=== PATIENT | male | born 1980 | race Caucasian/White ===

== ENCOUNTER 2018-10-07 13:58 | Inpatient (IN) | payer OTHER ==
[2018-10-07 16:58] LABS: ADD MAN DIFF? NO; BASOPHILS % 0.4 % (0.0-2.0); EOSINOPHILS # 0.3 10^3/ul (0.0-0.5); EOSINOPHILS % 3.6 % (0.0-7.0); HEMATOCRIT 34.4 % (42.0-52.0); HEMOGLOBIN 10.7 g/dl (14.0-18.0); LYMPHOCYTES # 1.6 10^3/ul (0.8-2.9); LYMPHOCYTES % 23.3 % (15.0-51.0); MEAN CORPUSCULAR HGB CONC 31.1 g/dl (32.0-37.0); MEAN CORPUSCULAR VOLUME 77.1 fl (82.0-101.0); MEAN PLATELET VOLUME 9.6 fl (7.4-10.4); MONOCYTE # 0.7 10^3/ul (0.3-0.9); MONOCYTES % 9.8 % (0.0-11.0); NEUTROPHIL # 4.3 10^3/ul (1.6-7.5); NEUTROPHILS % 62.2 % (39.0-77.0); PLATELET COUNT 343 10^3/UL (140-415); RED BLOOD COUNT 4.46 10^6/ul (4.70-6.10); RED CELL DISTRIBUTION WIDTH 15.7 % (11.5-14.5)
[2018-10-07 17:10] LABS: ALANINE AMINOTRANSFERASE 17 IU/L (13-69); ALBUMIN 2.7 g/dl (3.3-4.9); ALBUMIN/GLOBULIN RATIO 0.75; ALKALINE PHOSPHATASE 60 IU/L (42-121); ANION GAP 9 (5-13); ASPARTATE AMINO TRANSFERASE 22 IU/L (15-46); BLOOD UREA NITROGEN 17 mg/dl (7-20); CALCIUM 8.5 mg/dl (8.4-10.2); CARBON DIOXIDE 25 mmol/L (21-31); CHLORIDE 106 mmol/L (97-110); CREATININE 1.53 mg/dl (0.61-1.24); Estimated GFR 52 mL/min (>60); GLUCOSE 198 mg/dl (70-220); POTASSIUM 4.6 mmol/L (3.5-5.1); SODIUM 140 mmol/L (135-144); TOTAL PROTEIN 6.3 g/dl (6.1-8.1)
[2018-10-07 17:21] LABS: TROPONIN-I 0.025 ng/ml (0.000-0.120)
[2018-10-07 17:40] LABS: B-TYPE NATRIURETIC PEPTIDE 4510 PG/ML (0-125)
[2018-10-07] MEDS ORDERED: ONDANSETRON 4 MG INJ IV (18:30)
[2018-10-07] MEDS: ONDANSETRON 4 MG INJ IV (18:45)
[2018-10-07] MEDS: HYDROmorphONE 1 MG/ML SYG IV (18:45)
[2018-10-07] MEDS ORDERED: GLUCAGON 1 MG INJ IM (21:00)
[2018-10-07] MEDS ORDERED: GLUCOSE GEL 15 GRAM TUBE PO ×2 (21:00)
[2018-10-07] MEDS ORDERED: DEXTROSE 50% 50 ML SYRINGE IV ×2 (21:00)
[2018-10-07] MEDS ORDERED: NACL 0.9% 3 ML SYG IV (21:00)
[2018-10-07] MEDS ORDERED: HYDROCODONE/APAP (5/325) TAB PO (21:00)
[2018-10-07] MEDS ORDERED: GLUCOSE GEL 15 GRAM TUBE BUCCAL (21:00)
[2018-10-07] MEDS: FUROSEMIDE 40 MG INJ IV (21:37)
[2018-10-07] MEDS: hydrALAzine 20 MG INJ IV (22:30)
[2018-10-07] MEDS: INSULIN ASPART [NOVOLOG] 3 ML PEN SC (23:43)
[2018-10-08] MEDS: ACETAMINOPHEN 500 MG TAB PO ×2 (00:16→01:49)
[2018-10-08] MEDS: INSULIN GLARGINE [LANTus] (100 UNITS/ML) SYG SC ×2 (01:48→20:27)
[2018-10-08] MEDS: HYDROmorphONE 0.5 MG/0.5 ML SYG IV ×2 (04:45→22:19)
[2018-10-08] MEDS: FUROSEMIDE 40 MG INJ IV ×2 (06:31→17:57)
[2018-10-08 06:46] LABS: ADD MAN DIFF? NO
[2018-10-08 06:50] LABS: BASOPHILS % 0.5 % (0.0-2.0); EOSINOPHILS # 0.3 10^3/ul (0.0-0.5); EOSINOPHILS % 4.6 % (0.0-7.0); LYMPHOCYTES # 1.5 10^3/ul (0.8-2.9); LYMPHOCYTES % 22.8 % (15.0-51.0); MEAN CORPUSCULAR HEMOGLOBIN 24.1 pg (29.0-33.0); MEAN CORPUSCULAR HGB CONC 31.3 g/dl (32.0-37.0); MEAN CORPUSCULAR VOLUME 77.1 fl (82.0-101.0); MEAN PLATELET VOLUME 9.4 fl (7.4-10.4); MONOCYTE # 0.6 10^3/ul (0.3-0.9); MONOCYTES % 8.6 % (0.0-11.0); NEUTROPHIL # 4.1 10^3/ul (1.6-7.5); NEUTROPHILS % 62.9 % (39.0-77.0); PLATELET COUNT 302 10^3/UL (140-415); RED BLOOD COUNT 4.15 10^6/ul (4.70-6.10); RED CELL DISTRIBUTION WIDTH 15.9 % (11.5-14.5)
[2018-10-08 06:50] LABS: WHITE BLOOD COUNT 6.5 10^3/ul (4.8-10.8)
[2018-10-08 07:10] LABS: HEMOGLOBIN A1C 10.7 % (0-5.9)
[2018-10-08 07:14] LABS: ALANINE AMINOTRANSFERASE 12 IU/L (13-69); ALBUMIN 2.4 g/dl (3.3-4.9); ALBUMIN/GLOBULIN RATIO 0.77; ALKALINE PHOSPHATASE 62 IU/L (42-121); ANION GAP 5 (5-13); ASPARTATE AMINO TRANSFERASE 15 IU/L (15-46); BLOOD UREA NITROGEN 17 mg/dl (7-20); CALCIUM 8.2 mg/dl (8.4-10.2); CARBON DIOXIDE 26 mmol/L (21-31); CHLORIDE 111 mmol/L (97-110); CREATININE 1.59 mg/dl (0.61-1.24); Estimated GFR 50 mL/min (>60); GLUCOSE 178 mg/dl (70-220); POTASSIUM 4.4 mmol/L (3.5-5.1); SODIUM 142 mmol/L (135-144); TOTAL PROTEIN 5.5 g/dl (6.1-8.1)
[2018-10-08 07:23] LABS: IRON 27 ug/dl (35-150)
[2018-10-08 07:33] LABS: % IRON SATURATION 12 % SAT (22-52); TOTAL IRON BINDING CAPACITY 229 ug/dl (241-421)
[2018-10-08] MEDS: INSULIN ASPART [NOVOLOG] 3 ML PEN SC ×7 (07:55→20:27)
[2018-10-08] MEDS: AMLODIPINE 5 MG TAB PO (08:34)
[2018-10-08] MEDS: ENOXAPARIN 30 MG/0.3 ML SYG SC (08:56)
[2018-10-08 09:18] LABS: HAAIG REFLEX REFLEX FILED
[2018-10-08] MEDS: morphine 2 MG INJ IV (11:29)
[2018-10-08 13:39] LABS: COMPLEMENT C3 123 mg/dl (88-165)
[2018-10-08 14:03] LABS: HEPATITIS B SURFACE ANTIGEN NEGATIVE (NEGATIVE)
[2018-10-08 14:21] LABS: HEPATITIS B CORE ANTIBODY NEGATIVE (NEGATIVE); HEPATITIS C VIRAL ANTIBODY NEGATIVE (NEGATIVE)
[2018-10-08 14:36] LABS: COMPLEMENT C4 40 mg/dl (14-44)
[2018-10-08 18:15] LABS: RHEUMATOID FACTOR NEGATIVE (NEGATIVE)
[2018-10-09] MEDS: hydrALAzine 20 MG INJ IV ×3 (00:27→12:49)
[2018-10-09] MEDS: LABETALOL HCL 20MG INJ IV (02:43)
[2018-10-09] MEDS: HYDROmorphONE 0.5 MG/0.5 ML SYG IV ×3 (04:13→20:13)
[2018-10-09] MEDS: FUROSEMIDE 40 MG INJ IV ×2 (04:37→17:24)
[2018-10-09] MEDS: INSULIN ASPART [NOVOLOG] 3 ML PEN SC ×8 (07:55→21:00)
[2018-10-09] MEDS: LISINOPRIL 10 MG TAB PO (08:39)
[2018-10-09] MEDS: AMLODIPINE 5 MG TAB PO (08:39)
[2018-10-09] MEDS: ENOXAPARIN 30 MG/0.3 ML SYG SC (08:41)
[2018-10-09] MEDS: METOLAZONE 5 MG TAB PO ×2 (08:46→10:26)
[2018-10-09] MEDS ORDERED: LISINOPRIL 5 MG TAB PO (09:00)
[2018-10-09 09:57] LABS: ADD UMIC YES; UR ASCORBIC ACID NEGATIVE (NEGATIVE); UR BILIRUBIN (Dip) NEGATIVE (NEGATIVE); UR BLOOD (Dip) NEGATIVE (NEGATIVE); UR CLARITY CLEAR (CLEAR); UR COLOR COLORLESS (YELLOW); UR GLUCOSE (Dip) 1+ mg/dL (NEGATIVE); UR KETONES (Dip) NEGATIVE (NEGATIVE); UR LEUKOCYTE ESTERASE (Dip) NEGATIVE Leu/ul (NEGATIVE); UR NITRITE (Dip) NEGATIVE (NEGATIVE); UR RBC 1 /HPF (0-5); UR SPECIFIC GRAVITY (Dip) 1.006 (1.003-1.030); UR TOTAL PROTEIN (Dip) 2+ mg/dl (NEGATIVE); UR UROBILINOGEN (Dip) NEGATIVE (NEGATIVE); UR WBC 0 /HPF (0-5)
[2018-10-09 10:18] LABS: SODIUM,URINE RANDOM 142 mmol/L (30-90)
[2018-10-09 10:22] LABS: CREATININE,URINE RANDOM < 12.40 mg/dl (20-370)
[2018-10-09 10:25] LABS: ADD MAN DIFF? NO
[2018-10-09 10:26] LABS: BASOPHILS % 0.6 % (0.0-2.0); EOSINOPHILS # 0.3 10^3/ul (0.0-0.5); EOSINOPHILS % 4.5 % (0.0-7.0); HEMATOCRIT 32.9 % (42.0-52.0); HEMOGLOBIN 10.3 g/dl (14.0-18.0); LYMPHOCYTES # 1.6 10^3/ul (0.8-2.9); LYMPHOCYTES % 23.1 % (15.0-51.0); MEAN CORPUSCULAR HEMOGLOBIN 23.9 pg (29.0-33.0); MEAN CORPUSCULAR HGB CONC 31.3 g/dl (32.0-37.0); MEAN CORPUSCULAR VOLUME 76.3 fl (82.0-101.0); MEAN PLATELET VOLUME 9.5 fl (7.4-10.4); MONOCYTE # 0.6 10^3/ul (0.3-0.9); MONOCYTES % 8.3 % (0.0-11.0); NEUTROPHIL # 4.4 10^3/ul (1.6-7.5); NEUTROPHILS % 63.1 % (39.0-77.0); PLATELET COUNT 349 10^3/UL (140-415); RED BLOOD COUNT 4.31 10^6/ul (4.70-6.10); RED CELL DISTRIBUTION WIDTH 15.8 % (11.5-14.5)
[2018-10-09 10:56] LABS: ANION GAP 3 (5-13); BLOOD UREA NITROGEN 19 mg/dl (7-20); CALCIUM 8.5 mg/dl (8.4-10.2); CARBON DIOXIDE 27 mmol/L (21-31); CHLORIDE 108 mmol/L (97-110); Estimated GFR 53 mL/min (>60); GLUCOSE 186 mg/dl (70-220); MAGNESIUM 1.9 mg/dl (1.7-2.5); PHOSPHORUS 4.7 mg/dl (2.5-4.9); POTASSIUM 4.1 mmol/L (3.5-5.1); SODIUM 138 mmol/L (135-144)
[2018-10-09 11:47] LABS: MYELOPEROXIDASE ANTIBODY <1.0 AI; PROTEINASE-3 ANTIBODY <1.0 AI
[2018-10-09] MEDS ORDERED: traMADol 50 MG TAB PO (13:30)
[2018-10-09] MEDS ORDERED: ONDANSETRON 4 MG INJ IV (13:30)
[2018-10-09] MEDS: KETOROLAC 15 MG INJ IV (13:36)
[2018-10-09] MEDS: ONDANSETRON 4 MG INJ IV (13:36)
[2018-10-09 14:07] LABS: ANA SCREEN NEGATIVE (NEGATIVE)
[2018-10-09 16:26] LABS: ANTI-DNA (DOUBLE STRANDED) 121 U/mL (< 301)
[2018-10-09] MEDS: INSULIN GLARGINE [LANTus] (100 UNITS/ML) SYG SC (21:13)
[2018-10-10] MEDS: hydrALAzine 20 MG INJ IV (04:32)
[2018-10-10] MEDS: HYDROmorphONE 0.5 MG/0.5 ML SYG IV ×3 (04:38→20:32)
[2018-10-10 05:32] LABS: ANCA SCREEN NEGATIVE (NEGATIVE)
[2018-10-10 06:06] LABS: ADD MAN DIFF? NO
[2018-10-10 06:32] LABS: WHITE BLOOD COUNT 6.9 10^3/ul (4.8-10.8)
[2018-10-10 06:32] LABS: BASOPHILS % 0.4 % (0.0-2.0); EOSINOPHILS # 0.3 10^3/ul (0.0-0.5); EOSINOPHILS % 4.2 % (0.0-7.0); HEMATOCRIT 32.1 % (42.0-52.0); HEMOGLOBIN 10.1 g/dl (14.0-18.0); LYMPHOCYTES # 1.5 10^3/ul (0.8-2.9); LYMPHOCYTES % 21.7 % (15.0-51.0); MEAN CORPUSCULAR HGB CONC 31.5 g/dl (32.0-37.0); MEAN CORPUSCULAR VOLUME 76.4 fl (82.0-101.0); MEAN PLATELET VOLUME 9.3 fl (7.4-10.4); MONOCYTE # 0.6 10^3/ul (0.3-0.9); MONOCYTES % 8.4 % (0.0-11.0); NEUTROPHIL # 4.5 10^3/ul (1.6-7.5); NEUTROPHILS % 64.9 % (39.0-77.0); PLATELET COUNT 335 10^3/UL (140-415); RED CELL DISTRIBUTION WIDTH 15.6 % (11.5-14.5)
[2018-10-10] MEDS: FUROSEMIDE 40 MG INJ IV ×2 (06:37→17:39)
[2018-10-10 07:24] LABS: ANION GAP 3 (5-13); BLOOD UREA NITROGEN 18 mg/dl (7-20); CALCIUM 8.7 mg/dl (8.4-10.2); CARBON DIOXIDE 28 mmol/L (21-31); CHLORIDE 105 mmol/L (97-110); CREATININE 1.56 mg/dl (0.61-1.24); Estimated GFR 51 mL/min (>60); GLUCOSE 105 mg/dl (70-220); MAGNESIUM 1.9 mg/dl (1.7-2.5); POTASSIUM 3.9 mmol/L (3.5-5.1); SODIUM 136 mmol/L (135-144)
[2018-10-10] MEDS: INSULIN ASPART [NOVOLOG] 3 ML PEN SC ×7 (07:55→20:40)
[2018-10-10] MEDS: LISINOPRIL 10 MG TAB PO (08:26)
[2018-10-10] MEDS: AMLODIPINE 5 MG TAB PO (08:26)
[2018-10-10] MEDS: ENOXAPARIN 30 MG/0.3 ML SYG SC (08:30)
[2018-10-10] MEDS: INSULIN GLARGINE [LANTus] (100 UNITS/ML) SYG SC (20:39)
[2018-10-11] MEDS: hydrALAzine 20 MG INJ IV (04:27)
[2018-10-11] MEDS: FUROSEMIDE 40 MG INJ IV ×2 (05:28→17:25)
[2018-10-11] MEDS: HYDROmorphONE 0.5 MG/0.5 ML SYG IV ×3 (05:34→20:47)
[2018-10-11] MEDS: INSULIN ASPART [NOVOLOG] 3 ML PEN SC ×7 (07:55→20:50)
[2018-10-11] MEDS: AMLODIPINE 5 MG TAB PO (08:27)
[2018-10-11] MEDS: LISINOPRIL 10 MG TAB PO (08:27)
[2018-10-11] MEDS: ENOXAPARIN 30 MG/0.3 ML SYG SC (08:37)
[2018-10-11 10:49] LABS: ALBUMIN 2.6 g/dl (3.3-4.9); ANION GAP 3 (5-13); BLOOD UREA NITROGEN 24 mg/dl (7-20); CALCIUM 9.3 mg/dl (8.4-10.2); CARBON DIOXIDE 31 mmol/L (21-31); CHLORIDE 102 mmol/L (97-110); GLUCOSE 141 mg/dl (70-220); PHOSPHORUS 5.8 mg/dl (2.5-4.9); POTASSIUM 3.9 mmol/L (3.5-5.1); SODIUM 136 mmol/L (135-144)
[2018-10-11] MEDS ORDERED: oxyCODONE 5 MG TAB PO (15:30)
[2018-10-11] MEDS: INSULIN GLARGINE [LANTus] (100 UNITS/ML) SYG SC (20:59)
[2018-10-12] MEDS: HYDROmorphONE 0.5 MG/0.5 ML SYG IV ×4 (03:06→22:55)
[2018-10-12 05:54] LABS: ADD MAN DIFF? NO
[2018-10-12 06:04] LABS: WHITE BLOOD COUNT 6.9 10^3/ul (4.8-10.8)
[2018-10-12 06:04] LABS: BASOPHILS % 0.4 % (0.0-2.0); EOSINOPHILS # 0.3 10^3/ul (0.0-0.5); EOSINOPHILS % 4.1 % (0.0-7.0); HEMATOCRIT 34.6 % (42.0-52.0); HEMOGLOBIN 11.1 g/dl (14.0-18.0); LYMPHOCYTES # 1.8 10^3/ul (0.8-2.9); LYMPHOCYTES % 26.9 % (15.0-51.0); MEAN CORPUSCULAR HEMOGLOBIN 24.1 pg (29.0-33.0); MEAN CORPUSCULAR HGB CONC 32.1 g/dl (32.0-37.0); MEAN CORPUSCULAR VOLUME 75.2 fl (82.0-101.0); MEAN PLATELET VOLUME 9.4 fl (7.4-10.4); MONOCYTE # 0.7 10^3/ul (0.3-0.9); MONOCYTES % 10.5 % (0.0-11.0); NEUTROPHILS % 57.7 % (39.0-77.0); PLATELET COUNT 329 10^3/UL (140-415); RED CELL DISTRIBUTION WIDTH 15.7 % (11.5-14.5)
[2018-10-12] MEDS: FUROSEMIDE 40 MG INJ IV ×2 (06:45→17:05)
[2018-10-12 06:52] LABS: ALBUMIN 2.3 g/dl (3.3-4.9); ANION GAP 6 (5-13); BLOOD UREA NITROGEN 27 mg/dl (7-20); CARBON DIOXIDE 30 mmol/L (21-31); CHLORIDE 103 mmol/L (97-110); GLUCOSE 133 mg/dl (70-220); MAGNESIUM 1.9 mg/dl (1.7-2.5); PHOSPHORUS 5.4 mg/dl (2.5-4.9); SODIUM 139 mmol/L (135-144)
[2018-10-12] MEDS: INSULIN ASPART [NOVOLOG] 3 ML PEN SC ×7 (07:55→21:00)
[2018-10-12] MEDS: AMLODIPINE 5 MG TAB PO (08:07)
[2018-10-12] MEDS: LISINOPRIL 20 MG TAB PO (08:08)
[2018-10-12] MEDS: ENOXAPARIN 30 MG/0.3 ML SYG SC (08:17)
[2018-10-12] MEDS: METOLAZONE 5 MG TAB PO (10:31)
[2018-10-12] MEDS: ONDANSETRON 4 MG INJ IV (12:02)
[2018-10-12] MEDS ORDERED: VANCOMYCIN IV PER PHARMACY XX (12:30)
[2018-10-12] MEDS: SUCRALFATE (100 MG/ML) 10ML CUP PO ×3 (13:05→22:01)
[2018-10-12] MEDS: CEFEPIME 1GM/50 ML (PMX) 50 ML IVPB ×2 (13:05→22:01)
[2018-10-12] MEDS: VANCOMYCIN HCL 2 GM in SOD CHLORIDE 0.9% 500 ML IVPB (15:18)
[2018-10-12 16:06] LABS: CREATININE, RANDOM URINE 13 mg/dL (20-320); MICROALBUMIN 79.2 mg/dL; MICROALBUMIN/CREATININE RATIO 6092 (<30)
[2018-10-12] MEDS: PANTOPRAZOLE (EC) 40 MG TAB PO (17:04)
[2018-10-12] MEDS: INSULIN GLARGINE [LANTus] (100 UNITS/ML) SYG SC (22:55)
[2018-10-13] MEDS: VANCOMYCIN 1 GM 250 ML IVPB ×2 (01:39→13:35)
[2018-10-13] MEDS: PANTOPRAZOLE (EC) 40 MG TAB PO ×2 (05:19→17:39)
[2018-10-13] MEDS: HYDROmorphONE 0.5 MG/0.5 ML SYG IV ×2 (05:19→11:57)
[2018-10-13] MEDS: FUROSEMIDE 40 MG INJ IV (05:21)
[2018-10-13 06:26] LABS: ADD MAN DIFF? NO
[2018-10-13 06:33] LABS: WHITE BLOOD COUNT 7.5 10^3/ul (4.8-10.8)
[2018-10-13 06:33] LABS: BASOPHILS % 0.3 % (0.0-2.0); EOSINOPHILS # 0.4 10^3/ul (0.0-0.5); EOSINOPHILS % 4.9 % (0.0-7.0); HEMOGLOBIN 11.5 g/dl (14.0-18.0); LYMPHOCYTES # 1.2 10^3/ul (0.8-2.9); LYMPHOCYTES % 15.7 % (15.0-51.0); MEAN CORPUSCULAR HEMOGLOBIN 23.6 pg (29.0-33.0); MEAN CORPUSCULAR HGB CONC 31.1 g/dl (32.0-37.0); MEAN PLATELET VOLUME 9.5 fl (7.4-10.4); MONOCYTE # 0.7 10^3/ul (0.3-0.9); MONOCYTES % 9.5 % (0.0-11.0); NEUTROPHIL # 5.2 10^3/ul (1.6-7.5); NEUTROPHILS % 69.1 % (39.0-77.0); PLATELET COUNT 368 10^3/UL (140-415); RED BLOOD COUNT 4.87 10^6/ul (4.70-6.10); RED CELL DISTRIBUTION WIDTH 15.5 % (11.5-14.5)
[2018-10-13 07:00] LABS: ANION GAP 3 (5-13); BLOOD UREA NITROGEN 32 mg/dl (7-20); CALCIUM 8.9 mg/dl (8.4-10.2); CARBON DIOXIDE 31 mmol/L (21-31); CHLORIDE 104 mmol/L (97-110); CREATININE 1.72 mg/dl (0.61-1.24); Estimated GFR 45 mL/min (>60); GLUCOSE 142 mg/dl (70-220); PHOSPHORUS 5.3 mg/dl (2.5-4.9); SODIUM 138 mmol/L (135-144)
[2018-10-13] MEDS: SUCRALFATE (100 MG/ML) 10ML CUP PO ×4 (08:25→22:09)
[2018-10-13] MEDS: CEFEPIME 1GM/50 ML (PMX) 50 ML IVPB (08:25)
[2018-10-13] MEDS: LISINOPRIL 20 MG TAB PO (08:26)
[2018-10-13] MEDS: AMLODIPINE 5 MG TAB PO (08:26)
[2018-10-13] MEDS: INSULIN ASPART [NOVOLOG] 3 ML PEN SC ×7 (08:38→22:21)
[2018-10-13] MEDS: ENOXAPARIN 30 MG/0.3 ML SYG SC (08:39)
[2018-10-13] MEDS: METOLAZONE 2.5 MG TAB PO (08:40)
[2018-10-13] MEDS: BUMETANIDE 1 MG TAB PO (17:39)
[2018-10-13] MEDS: HYDROmorphONE 1 MG/ML SYG IV (18:06)
[2018-10-13] MEDS ORDERED: POLYETHYLENE GLYCOL 17 GM PACKET PO (19:00)
[2018-10-13] MEDS: DOXYCYCLINE 100 MG TAB PO (22:09)
[2018-10-13] MEDS: INSULIN GLARGINE [LANTus] (100 UNITS/ML) SYG SC (22:19)
[2018-10-14] MEDS: HYDROmorphONE 1 MG/ML SYG IV ×4 (00:31→19:53)
[2018-10-14 05:11] LABS: ADD MAN DIFF? NO
[2018-10-14 05:17] LABS: WHITE BLOOD COUNT 6.3 10^3/ul (4.8-10.8)
[2018-10-14 05:17] LABS: BASOPHILS % 0.3 % (0.0-2.0); EOSINOPHILS # 0.3 10^3/ul (0.0-0.5); EOSINOPHILS % 4.9 % (0.0-7.0); HEMATOCRIT 35.4 % (42.0-52.0); HEMOGLOBIN 11.2 g/dl (14.0-18.0); LYMPHOCYTES # 1.3 10^3/ul (0.8-2.9); LYMPHOCYTES % 20.9 % (15.0-51.0); MEAN CORPUSCULAR HEMOGLOBIN 23.9 pg (29.0-33.0); MEAN CORPUSCULAR HGB CONC 31.6 g/dl (32.0-37.0); MEAN CORPUSCULAR VOLUME 75.5 fl (82.0-101.0); MEAN PLATELET VOLUME 9.7 fl (7.4-10.4); MONOCYTE # 0.7 10^3/ul (0.3-0.9); MONOCYTES % 10.8 % (0.0-11.0); NEUTROPHIL # 3.9 10^3/ul (1.6-7.5); NEUTROPHILS % 62.6 % (39.0-77.0); PLATELET COUNT 341 10^3/UL (140-415); RED BLOOD COUNT 4.69 10^6/ul (4.70-6.10); RED CELL DISTRIBUTION WIDTH 15.4 % (11.5-14.5)
[2018-10-14] MEDS: PANTOPRAZOLE (EC) 40 MG TAB PO ×2 (05:48→17:45)
[2018-10-14] MEDS: BUMETANIDE 1 MG TAB PO ×2 (05:48→17:45)
[2018-10-14 05:55] LABS: ANION GAP 7 (5-13); BLOOD UREA NITROGEN 37 mg/dl (7-20); CALCIUM 8.5 mg/dl (8.4-10.2); CARBON DIOXIDE 30 mmol/L (21-31); CHLORIDE 100 mmol/L (97-110); CREATININE 1.86 mg/dl (0.61-1.24); Estimated GFR 41 mL/min (>60); GLUCOSE 225 mg/dl (70-220); MAGNESIUM 2.1 mg/dl (1.7-2.5); PHOSPHORUS 4.4 mg/dl (2.5-4.9); SODIUM 137 mmol/L (135-144)
[2018-10-14] MEDS: DOXYCYCLINE 100 MG TAB PO ×2 (08:33→21:04)
[2018-10-14] MEDS: SUCRALFATE (100 MG/ML) 10ML CUP PO ×4 (08:33→21:04)
[2018-10-14] MEDS: AMLODIPINE 5 MG TAB PO (08:34)
[2018-10-14] MEDS: LISINOPRIL 20 MG TAB PO (08:34)
[2018-10-14] MEDS: INSULIN ASPART [NOVOLOG] 3 ML PEN SC ×5 (08:38→21:00)
[2018-10-14] MEDS: ENOXAPARIN 30 MG/0.3 ML SYG SC (08:39)
[2018-10-14] MEDS: PSYLLIUM 28% PACKET PO (11:31)
[2018-10-14] MEDS: LINAGLIPTIN 5 MG TABLET PO (11:32)
[2018-10-14] MEDS: REPAGLINIDE 2 MG TAB PO ×2 (12:59→17:45)
[2018-10-14] MEDS: INSULIN GLARGINE [LANTus] (100 UNITS/ML) SYG SC (21:10)
[2018-10-15] MEDS: HYDROmorphONE 1 MG/ML SYG IV ×3 (02:48→10:30)
[2018-10-15 05:38] LABS: ADD MAN DIFF? NO
[2018-10-15 05:44] LABS: WHITE BLOOD COUNT 7.9 10^3/ul (4.8-10.8)
[2018-10-15 05:44] LABS: BASOPHILS % 0.4 % (0.0-2.0); EOSINOPHILS # 0.4 10^3/ul (0.0-0.5); HEMATOCRIT 38.5 % (42.0-52.0); LYMPHOCYTES # 2.2 10^3/ul (0.8-2.9); LYMPHOCYTES % 27.4 % (15.0-51.0); MEAN CORPUSCULAR HEMOGLOBIN 23.5 pg (29.0-33.0); MEAN CORPUSCULAR HGB CONC 31.2 g/dl (32.0-37.0); MEAN CORPUSCULAR VOLUME 75.3 fl (82.0-101.0); MEAN PLATELET VOLUME 9.8 fl (7.4-10.4); MONOCYTE # 0.8 10^3/ul (0.3-0.9); MONOCYTES % 9.8 % (0.0-11.0); NEUTROPHIL # 4.5 10^3/ul (1.6-7.5); PLATELET COUNT 391 10^3/UL (140-415); RED BLOOD COUNT 5.11 10^6/ul (4.70-6.10); RED CELL DISTRIBUTION WIDTH 15.7 % (11.5-14.5)
[2018-10-15] MEDS: PANTOPRAZOLE (EC) 40 MG TAB PO (06:07)
[2018-10-15] MEDS: BUMETANIDE 1 MG TAB PO (06:07)
[2018-10-15 06:17] LABS: ANION GAP 7 (5-13); BLOOD UREA NITROGEN 44 mg/dl (7-20); CALCIUM 8.2 mg/dl (8.4-10.2); CARBON DIOXIDE 30 mmol/L (21-31); CHLORIDE 102 mmol/L (97-110); Estimated GFR 43 mL/min (>60); GLUCOSE 114 mg/dl (70-220); MAGNESIUM 2.3 mg/dl (1.7-2.5); PHOSPHORUS 4.5 mg/dl (2.5-4.9); SODIUM 139 mmol/L (135-144)
[2018-10-15] MEDS: ONDANSETRON 4 MG INJ IV (06:45)
[2018-10-15] MEDS: SUCRALFATE (100 MG/ML) 10ML CUP PO ×2 (08:57→13:08)
[2018-10-15] MEDS: DOXYCYCLINE 100 MG TAB PO (08:58)
[2018-10-15] MEDS: LINAGLIPTIN 5 MG TABLET PO (08:58)
[2018-10-15] MEDS: PSYLLIUM 28% PACKET PO (08:58)
[2018-10-15] MEDS: REPAGLINIDE 2 MG TAB PO ×2 (08:58→13:09)
[2018-10-15] MEDS: AMLODIPINE 5 MG TAB PO (08:59)
[2018-10-15] MEDS: LISINOPRIL 20 MG TAB PO (08:59)
[2018-10-15] MEDS: INSULIN ASPART [NOVOLOG] 3 ML PEN SC ×2 (09:04→12:00)
[2018-10-15] MEDS: ENOXAPARIN 30 MG/0.3 ML SYG SC (09:05)
== END 2018-10-15 15:10 | disposition home or self-care (01) | DRG 699 ==
LOC: E/R 13:58 → 2NE 10-13 21:20 → TEL 22:45
DX: E11.21 Type 2 diabetes mellitus with diabetic nephropathy (principal); I13.0 Hypertensive heart and chronic kidney disease with heart failure and stage 1 through stage 4 chronic kidney disease, or unspecified chronic kidney disease; Z68.42 Body mass index [BMI] 45.0-49.9, adult; K62.5 Hemorrhage of anus and rectum; L03.115 Cellulitis of right lower limb; N18.3 Chronic kidney disease, stage 3 (moderate); I50.9 Heart failure, unspecified; N17.9 Acute kidney failure, unspecified; E66.01 Morbid (severe) obesity due to excess calories; E11.22 Type 2 diabetes mellitus with diabetic chronic kidney disease; D50.9 Iron deficiency anemia, unspecified; E87.70 Fluid overload, unspecified; E83.9 Disorder of mineral metabolism, unspecified; F17.200 Nicotine dependence, unspecified, uncomplicated; E11.628 Type 2 diabetes mellitus with other skin complications
CPT/HCPCS: 36415; 71045; 76775; 80048; 80053; 80069; 81001; 81003; 82043; 82595; 82728; 82962; 83036; 83540; 83735; 83880; 84100; 84155; 84300; 84484; 85025; 86021; 86038; 86160; 86226; 86430; 86704; 86709; 86803; 87040; 87081; 87340; 93005; 93306; 99285-25

== ENCOUNTER 2018-11-18 15:23 | Emergency (ER) | payer OTHER ==
[2018-11-18 15:53] LABS: ADD MAN DIFF? NO
[2018-11-18 15:57] LABS: WHITE BLOOD COUNT 15.7 10^3/ul (4.8-10.8)
[2018-11-18 15:57] LABS: BASOPHILS % 0.1 % (0.0-2.0); EOSINOPHILS # 0.1 10^3/ul (0.0-0.5); EOSINOPHILS % 0.3 % (0.0-7.0); HEMATOCRIT 33.8 % (42.0-52.0); LYMPHOCYTES # 0.6 10^3/ul (0.8-2.9); MEAN CORPUSCULAR HEMOGLOBIN 23.4 pg (29.0-33.0); MEAN CORPUSCULAR HGB CONC 32.5 g/dl (32.0-37.0); MEAN CORPUSCULAR VOLUME 71.9 fl (82.0-101.0); MEAN PLATELET VOLUME 9.6 fl (7.4-10.4); MONOCYTE # 0.8 10^3/ul (0.3-0.9); MONOCYTES % 5.3 % (0.0-11.0); NEUTROPHIL # 14.1 10^3/ul (1.6-7.5); NEUTROPHILS % 89.8 % (39.0-77.0); PLATELET COUNT 303 10^3/UL (140-415); RED CELL DISTRIBUTION WIDTH 15.7 % (11.5-14.5)
[2018-11-18 16:14] LABS: LACTIC ACID 1.3 mmol/L (0.5-2.0)
[2018-11-18 16:16] LABS: ALBUMIN 2.6 g/dl (3.3-4.9); ALBUMIN/GLOBULIN RATIO 0.78; ALKALINE PHOSPHATASE 61 IU/L (42-121); ANION GAP 6 (5-13); ASPARTATE AMINO TRANSFERASE 15 IU/L (15-46); BILIRUBIN,INDIRECT 0.3 mg/dl (0-1.1); BILIRUBIN,TOTAL 0.3 mg/dl (0.2-1.3); BLOOD UREA NITROGEN 27 mg/dl (7-20); CALCIUM 8.1 mg/dl (8.4-10.2); CARBON DIOXIDE 22 mmol/L (21-31); CHLORIDE 109 mmol/L (97-110); CREATININE 1.64 mg/dl (0.61-1.24); Estimated GFR 48 mL/min (>60); GLUCOSE 192 mg/dl (70-220); POTASSIUM 4.5 mmol/L (3.5-5.1); SODIUM 137 mmol/L (135-144); TOTAL PROTEIN 5.9 g/dl (6.1-8.1)
[2018-11-18 16:17] LABS: ALANINE AMINOTRANSFERASE < 6 IU/L (13-69)
[2018-11-18 16:21] LABS: INR 1.19; PROTIME 15.2 Sec (11.9-14.9); PT RATIO 1.2
[2018-11-18 16:22] LABS: PARTIAL THROMBOPLASTIN TIME 36.8 Sec (23.0-35.0)
[2018-11-18] MEDS: PIPER-TAZO 3.375 GM IV (PMX) 100 ML IVPB (16:36)
[2018-11-18] MEDS: HYDROmorphONE 2 MG/ML SYG IV (16:37)
[2018-11-18 17:24] LABS: ADD UMIC YES; UR ASCORBIC ACID NEGATIVE (NEGATIVE); UR BILIRUBIN (Dip) NEGATIVE (NEGATIVE); UR BLOOD (Dip) 1+ mg/dL (NEGATIVE); UR CLARITY SLIGHTLY CLOUDY (CLEAR); UR COLOR YELLOW (YELLOW); UR GLUCOSE (Dip) 2+ mg/dL (NEGATIVE); UR KETONES (Dip) NEGATIVE (NEGATIVE); UR LEUKOCYTE ESTERASE (Dip) NEGATIVE Leu/ul (NEGATIVE); UR MUCUS FEW /HPF (NONE SEEN); UR NITRITE (Dip) NEGATIVE (NEGATIVE); UR RBC 5 /HPF (0-5); UR SPECIFIC GRAVITY (Dip) 1.015 (1.003-1.030); UR TOTAL PROTEIN (Dip) 3+ mg/dl (NEGATIVE); UR UROBILINOGEN (Dip) NEGATIVE (NEGATIVE); UR WBC 5 /HPF (0-5)
[2018-11-18] MEDS: VANCOMYCIN 1 GM (PMX) 250 ML IVPB (17:42)
== END 2018-11-18 20:12 | disposition home or self-care (01) ==
LOC: E/R 15:23
DX: L03.115 Cellulitis of right lower limb (principal); A41.9 Sepsis, unspecified organism; I12.9 Hypertensive chronic kidney disease with stage 1 through stage 4 chronic kidney disease, or unspecified chronic kidney disease; N18.9 Chronic kidney disease, unspecified; E11.22 Type 2 diabetes mellitus with diabetic chronic kidney disease; E66.01 Morbid (severe) obesity due to excess calories; F17.210 Nicotine dependence, cigarettes, uncomplicated; Z68.38 Body mass index [BMI] 38.0-38.9, adult; Z79.4 Long term (current) use of insulin
CPT/HCPCS: 71045; 80053; 81001; 83605; 85025; 85610; 85730; 87040; 87086; 93005; 93970; 96374; 96375; 99285-25

== ENCOUNTER 2019-01-02 05:46 | Emergency (ER) | payer OTHER ==
[2019-01-02 07:11] LABS: ADD MAN DIFF? NO
[2019-01-02] MEDS: morphine 4 MG/ML VIAL IV (07:14)
[2019-01-02 07:17] LABS: BASOPHIL # 0.1 10^3/ul (0.0-0.1); BASOPHILS % 0.5 % (0.0-2.0); EOSINOPHILS # 0.3 10^3/ul (0.0-0.5); EOSINOPHILS % 3.1 % (0.0-7.0); HEMATOCRIT 32.1 % (42.0-52.0); HEMOGLOBIN 10.3 g/dl (14.0-18.0); LYMPHOCYTES % 19.7 % (15.0-51.0); MEAN CORPUSCULAR HEMOGLOBIN 23.3 pg (29.0-33.0); MEAN CORPUSCULAR HGB CONC 32.1 g/dl (32.0-37.0); MEAN CORPUSCULAR VOLUME 72.5 fl (82.0-101.0); MEAN PLATELET VOLUME 9.3 fl (7.4-10.4); MONOCYTE # 0.7 10^3/ul (0.3-0.9); MONOCYTES % 7.2 % (0.0-11.0); NEUTROPHIL # 6.9 10^3/ul (1.6-7.5); NEUTROPHILS % 68.4 % (39.0-77.0); PLATELET COUNT 403 10^3/UL (140-415); RED BLOOD COUNT 4.43 10^6/ul (4.70-6.10); RED CELL DISTRIBUTION WIDTH 16.7 % (11.5-14.5)
[2019-01-02 07:32] LABS: ALANINE AMINOTRANSFERASE 15 IU/L (13-69); ALBUMIN 2.5 g/dl (3.3-4.9); ALBUMIN/GLOBULIN RATIO 0.73; ALKALINE PHOSPHATASE 67 IU/L (42-121); ANION GAP 0 (5-13); ASPARTATE AMINO TRANSFERASE 14 IU/L (15-46); BILIRUBIN,INDIRECT 0.2 mg/dl (0-1.1); BILIRUBIN,TOTAL 0.2 mg/dl (0.2-1.3); BLOOD UREA NITROGEN 32 mg/dl (7-20); CALCIUM 8.1 mg/dl (8.4-10.2); CARBON DIOXIDE 23 mmol/L (21-31); CHLORIDE 111 mmol/L (97-110); CREATININE 2.21 mg/dl (0.61-1.24); Estimated GFR 34 mL/min (>60); GLUCOSE 231 mg/dl (70-220); POTASSIUM 4.8 mmol/L (3.5-5.1); SODIUM 134 mmol/L (135-144); TOTAL PROTEIN 5.9 g/dl (6.1-8.1)
[2019-01-02 07:43] LABS: B-TYPE NATRIURETIC PEPTIDE 4260 PG/ML (0-125); TROPONIN-I 0.042 ng/ml (0.000-0.120)
[2019-01-02] MEDS: FUROSEMIDE 40 MG INJ IV (08:24)
== END 2019-01-02 09:00 | disposition home or self-care (01) ==
LOC: E/R 05:46
DX: E11.621 Type 2 diabetes mellitus with foot ulcer (principal); E66.01 Morbid (severe) obesity due to excess calories; N18.9 Chronic kidney disease, unspecified; I12.9 Hypertensive chronic kidney disease with stage 1 through stage 4 chronic kidney disease, or unspecified chronic kidney disease; L97.509 Non-pressure chronic ulcer of other part of unspecified foot with unspecified severity; E11.22 Type 2 diabetes mellitus with diabetic chronic kidney disease; J81.0 Acute pulmonary edema; Z79.4 Long term (current) use of insulin
CPT/HCPCS: 36415; 71045; 80053; 83880; 84484; 85025; 93005; 96374; 96375; 99285-25

== ENCOUNTER 2019-01-18 13:48 | Emergency (ER) | payer OTHER ==
[2019-01-18 15:10] LABS: ADD MAN DIFF? NO
[2019-01-18 15:32] LABS: BASOPHILS % 0.2 % (0.0-2.0); EOSINOPHILS # 0.1 10^3/ul (0.0-0.5); EOSINOPHILS % 1.1 % (0.0-7.0); HEMATOCRIT 29.2 % (42.0-52.0); HEMOGLOBIN 9.2 g/dl (14.0-18.0); LYMPHOCYTES # 0.8 10^3/ul (0.8-2.9); LYMPHOCYTES % 13.4 % (15.0-51.0); MEAN CORPUSCULAR HEMOGLOBIN 23.4 pg (29.0-33.0); MEAN CORPUSCULAR HGB CONC 31.5 g/dl (32.0-37.0); MEAN CORPUSCULAR VOLUME 74.1 fl (82.0-101.0); MEAN PLATELET VOLUME 11.3 fl (7.4-10.4); MONOCYTE # 0.7 10^3/ul (0.3-0.9); MONOCYTES % 11.1 % (0.0-11.0); NEUTROPHIL # 4.6 10^3/ul (1.6-7.5); NEUTROPHILS % 73.6 % (39.0-77.0); PLATELET COUNT 200 10^3/UL (140-415); RED BLOOD COUNT 3.94 10^6/ul (4.70-6.10); RED CELL DISTRIBUTION WIDTH 17.2 % (11.5-14.5)
[2019-01-18 15:32] LABS: WHITE BLOOD COUNT 6.3 10^3/ul (4.8-10.8)
[2019-01-18 15:34] LABS: ALANINE AMINOTRANSFERASE 26 IU/L (13-69); ALBUMIN 2.9 g/dl (3.3-4.9); ALBUMIN/GLOBULIN RATIO 0.85; ALKALINE PHOSPHATASE 96 IU/L (42-121); ANION GAP 8 (5-13); ASPARTATE AMINO TRANSFERASE 29 IU/L (15-46); BILIRUBIN,INDIRECT 0.3 mg/dl (0-1.1); BILIRUBIN,TOTAL 0.3 mg/dl (0.2-1.3); BLOOD UREA NITROGEN 52 mg/dl (7-20); CALCIUM 7.9 mg/dl (8.4-10.2); CARBON DIOXIDE 22 mmol/L (21-31); CHLORIDE 108 mmol/L (97-110); Estimated GFR 27 mL/min (>60); GLUCOSE 217 mg/dl (70-220); LIPASE 249 U/L (23-300); POTASSIUM 4.6 mmol/L (3.5-5.1); SODIUM 138 mmol/L (135-144); TOTAL PROTEIN 6.3 g/dl (6.1-8.1)
[2019-01-18 16:04] LABS: B-TYPE NATRIURETIC PEPTIDE 7800 PG/ML (0-125)
[2019-01-18 16:21] LABS: URINE BLOOD (Dip) POC 2+ (NEGATIVE); URINE KETONES (Dip) POC Negative (NEGATIVE); URINE LEUKOCYTE EST (Dip) POC Negative (NEGATIVE); URINE NITRITE (Dip) POC Negative (NEGATIVE); URINE TOTAL PROTEIN POC 3+ (NEGATIVE)
[2019-01-18] MEDS: ONDANSETRON 4 MG INJ IV (17:57)
[2019-01-18] MEDS: morphine 2 MG INJ IV (17:57)
== END 2019-01-18 18:58 | disposition home or self-care (01) ==
LOC: E/R 13:48
DX: R10.9 Unspecified abdominal pain (principal); I12.9 Hypertensive chronic kidney disease with stage 1 through stage 4 chronic kidney disease, or unspecified chronic kidney disease; N18.9 Chronic kidney disease, unspecified; E11.22 Type 2 diabetes mellitus with diabetic chronic kidney disease; R06.02 Shortness of breath; E66.01 Morbid (severe) obesity due to excess calories; Z79.4 Long term (current) use of insulin; Z87.891 Personal history of nicotine dependence
CPT/HCPCS: 36415; 71045; 80053; 81003; 83690; 83880; 85025; 96374; 96375; 99284-25